=== PATIENT | male | born 1950 | race Caucasian/White ===

== ENCOUNTER 2019-11-25 06:15 | Day surgery (SDC) | payer OTHER ==
[~2019-11-25] VITALS: Ht 167.6 cm; Wt 65.8 kg
[2019-11-25 06:31] VITALS: BP 146/96
[2019-11-25 10:12] VITALS: BP 125/82
== END 2019-11-25 10:05 | disposition home or self-care (01) ==
LOC: DS 06:15 → GI 07:30 → OR 07:30 → GI 08:15 → DS 10:05
DX: Z12.11 Encounter for screening for malignant neoplasm of colon (principal); K63.5 Polyp of colon; E83.110 Hereditary hemochromatosis; E03.9 Hypothyroidism, unspecified; E78.00 Pure hypercholesterolemia, unspecified; Z79.899 Other long term (current) drug therapy; Z98.890 Other specified postprocedural states
CPT/HCPCS: 45378; J1200; J1610; J2250; J2310; J3010; J3490